=== PATIENT | male | born 1960 | race Caucasian/White ===

== ENCOUNTER 2020-02-09 10:59 | Emergency (ER) | payer OTHER, SELFPAY ==
[2020-02-09 11:27] VITALS: BP 106/64; PULSE 88; RESP 16; TEMP 36.6; O2SAT 100
--- NOTE | 2020-02-09 11:55 | ED.GENADULT ---
HPI - General Adult General Chief complaint: Abdominal Pain Stated complaint: fall and abdo pain Time Seen by Provider: 02/09/20 11:50 Source: patient and RN notes reviewed Mode of arrival: ambulatory Limitations: no limitations History of Present Illness HPI narrative: 59-year-old male presents with concern for bilateral lower leg swelling. He also reports diarrhea, heartburn, decreased appetite for 1 month. Reports 3 days ago he tripped and fell and hit his feet, he attributes the feet swelling to the fall. Reports history of hepatitis C. Reports consuming approximately 750 mL of liquor daily. He reports malaise, fatigue. Denies fever, shortness of breath, cough. MD complaint: Abdominal pain Related Data Home Medications Medication Instructions Recorded Confirmed No Home Medications 02/09/20 02/09/20 Allergies Allergy/AdvReac Type Severity Reaction Status Date / Time Penicillins Allergy Swelling Verified 02/09/20 11:43 of Lip/Tongue/Throat Review of Systems Review of Systems: Narrative: CONSTITUTIONAL: Reports malaise, fatigue. Denies chills, sweats, or fever. EYES: Denies visual changes ENT: Denies rhinorrhea, congestion, sinus pain, otalgia or sore throat. CARDIOVASCULAR: Denies chest pain, palpitations. Reports bilateral ankle and foot edema. RESPIRATORY: Denies cough or dyspnea. GASTROINTESTINAL: Denies abdominal pain, nausea, vomiting, bloody, or mucous stools. Reports diarrhea for 1 month, abdominal bloating GENITOURINARY: Denies dysuria or hematuria. MUSCULOSKELETAL: Denies myalgia. Denies bilateral lower extremity pain NEUROLOGIC: Denies numbness, weakness, or headache. All systems reviewed & are unremarkable except as noted in HPI and below PMFSH Comments At time of signature, agree with nursing past medical, surgical, social and family history. There is no relevant family history pertinent to the presenting complaint Exam Narrative: Exam Narrative: GENERAL: Well-appearing, well-nourished, and in no acute distress. HEAD: Normocephalic, atraumatic. EYES: PERRLA, conjunctivae clear, and EOMI. jaundiced ENT: Nares clear, turbinates pink, no rhinorrhea or epistaxis. Mucous membranes moist. Oropharynx without edema, erythema, or lesions. Tonsils not enlarged and without exudate. NECK: Supple. No lymphadenopathy CHEST: Speaks in full sentences. No respiratory distress. HEART: Regular rate and rhythm. ABDOMEN: Distended, left upper quadrant tenderness. No guarding, rigid. No pulsatilla masses. Bowel sounds present in all four quadrants. Negative Echevarria?s sign. No periumbilical tenderness. No Supra public tenderness or distension. Good femoral pulses bilaterally. No hernia noted. Musculoskeletal: 2+ pitting edema bilateral ankles and feet without erythema, ecchymosis, tenderness SKIN: Warm, dry, no rash, mild jaundice. NEURO: Alert and oriented x3. PSYCH: Normal mood and affect Course Course Emergency Course: Patient is aware of, understands and agrees to reasons to be seen in emergency department. Patient agrees to proceed directly to the emergency department. Portions of this record may have been created with voice recognition software Vital Signs Vital signs: Vital Signs Temperature 98 F 02/09/20 11:27 Pulse Rate 88 02/09/20 11:27 Respiratory Rate 16 02/09/20 11:27 Blood Pressure 106/64 02/09/20 11:27 Pulse Oximetry 100 02/09/20 11:27 Temperature 98 F 02/09/20 11:27 Pulse Rate 88 02/09/20 11:27 Respiratory Rate 16 02/09/20 11:27 Blood Pressure 106/64 02/09/20 11:27 Pulse Oximetry 100 02/09/20 11:27 Reviewed. Transfer Transfered to: [facility] Transportation: Other (Private vehicle) Transfer rationale: Abdominal pain, bilateral lower extremity edema, diarrhea for 1 month Accepting physician: Dr. Hightower Transfer comments: Patient stable for transfer via private vehicle Medical Decision Making MDM Narrative Medical decision ma
== END 2020-02-09 12:10 | disposition short-term general hospital (02) ==
PROVIDERS: Emergency Provider Nurse Practitioner
DX: R10.12 Left upper quadrant pain (principal); Z86.19 Personal history of other infectious and parasitic diseases
CPT/HCPCS: 99202; G0463